=== PATIENT | male | born 1960 | race Caucasian/White ===

== ENCOUNTER 2017-01-24 14:05 | Emergency (ER) | payer OTHER ==
[~2017-01-24] VITALS: Ht 187.9 cm; Wt 117.9 kg
[2017-01-24] MEDS ORDERED: NAPROSYN500 MG PO (16:20)
[2017-01-24] MEDS ORDERED: CYCLOBENZAPRINE10 MG PO (16:20)
== END 2017-01-24 20:12 | disposition home or self-care (01) ==
LOC: ED 14:05
DX: S16.1XXA Strain of muscle, fascia and tendon at neck level, initial encounter (principal); M25.562 Pain in left knee; V59.9XXA Occupant (driver) (passenger) of pick-up truck or van injured in unspecified traffic accident, initial encounter; Y93.89 Activity, other specified; Y92.488 Other paved roadways as the place of occurrence of the external cause; Y99.8 Other external cause status